=== PATIENT | female | born 1990 | race Caucasian/White ===

== ENCOUNTER 2018-01-31 12:55 | Emergency (ER) | payer MEDICARE, MEDICAID ==
[~2018-01-31] VITALS: Ht 152.4 cm; Wt 106.0 kg
[2018-01-31 13:14] VITALS: BP 142/85
== END 2018-01-31 14:26 | disposition home or self-care (01) ==
LOC: ED 14:20
DX: G89.11 Acute pain due to trauma (principal); M25.572 Pain in left ankle and joints of left foot
CPT/HCPCS: 99284